=== PATIENT | female | born 1960 | race Caucasian/White ===

== ENCOUNTER 2022-01-19 15:14 | Outpatient (CLI) | payer BC | END 2022-01-19 15:15 | disposition home or self-care (01) | LOC: CSHMAMMO 15:14 | PROVIDERS: ATTEND Obstetrics & Gynecology Gynecology | DX: Z12.31 Encounter for screening mammogram for malignant neoplasm of breast (principal) | CPT/HCPCS: 77063; 77067 ==

== ENCOUNTER 2023-02-02 09:22 | Outpatient (CLI) | payer BC | END 2023-02-02 09:23 | disposition home or self-care (01) | LOC: CSHMAMMO 09:22 | PROVIDERS: ATTEND Obstetrics & Gynecology Gynecology | DX: Z12.31 Encounter for screening mammogram for malignant neoplasm of breast (principal) | CPT/HCPCS: 77063; 77067 ==

== ENCOUNTER 2025-02-08 11:47 | Outpatient (CLI) | payer BC | END 2025-02-08 11:48 | disposition home or self-care (01) | LOC: CSHMAMMO 11:47 | PROVIDERS: ATTEND Obstetrics & Gynecology Gynecology | DX: Z12.31 Encounter for screening mammogram for malignant neoplasm of breast (principal) | CPT/HCPCS: 77063; 77067 ==